=== PATIENT | male | born 1990 | race Asian ===

== ENCOUNTER 2022-05-17 03:58 | Emergency (ER) | payer BC ==
[~2022-05-17] VITALS: Ht 165.1 cm; Wt 63.5 kg
[2022-05-17 04:04] VITALS: BP 126/77
--- NOTE | 2022-05-17 04:11 | NUR ---
TO BED 7 FROM TRIAGE
--- NOTE | 2022-05-17 04:12 | NUR ---
NOTED BLOOD IN STOOL 1 HOUR AGO, BLOOD WAS BRIGHT RED AND PT HAS H/O HEMORRHOIDS AND CONSTIPATION PMH : DENIES
--- NOTE | 2022-05-17 04:18 | NUR ---
Dr. Dennis examining patient.
--- NOTE | 2022-05-17 04:45 | NUR ---
LABS DRAWN AND SENT TO LAB
[2022-05-17 04:55] LABS: BASOPHILS % (AUTO) 0.6 % (0.0-2.0); EOSINOPHILS # (AUTO) 0.2 K/uL (0-0.4); EOSINOPHILS % (AUTO) 4.3 % (0.0-4.0); HEMATOCRIT 43.4 % (36-52); HEMOGLOBIN 14.5 g/dL (12.0-18.0); LYMPHOCYTES % (AUTO) 36.5 % (20.5-51.1); MEAN CORPUSCULAR HEMOGLOBIN 28 pg (27-31); MEAN CORPUSCULAR HGB CONC 33 g/dL (33-37); MONOCYTES # (AUTO) 0.5 K/uL (0.8-1.0); MONOCYTES % (AUTO) 9.1 % (1.7-9.3); NEUTROPHILS # (AUTO) 2.7 K/uL (1.8-7.7); NEUTROPHILS % (AUTO) 49.5 % (42.2-75.2); PLATELET COUNT (AUTO) 197 K/uL (140-450); RED BLOOD CELL COUNT(AUTO) 5.17 MIL/uL (4.20-6.10); RED CELL DISTRIBUTION WIDTH 13.2 % (11.6-13.7); WHITE BLOOD COUNT (AUTO) 5.5 K/uL (4.8-10.8)
--- NOTE | 2022-05-17 04:58 | NUR ---
pt to CT via w/c
--- NOTE | 2022-05-17 04:58 | NUR ---
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
[2022-05-17] MEDS ORDERED: KETOROLAC 30 MG/ML VIAL IVP ONE (05:00)
[2022-05-17 05:10] LABS: ALBUMIN 4.5 g/dL (3.4-5.0); CARBON DIOXIDE 28.9 mmol/L (21-32); CREATININE 1.2 mg/dL (0.6-1.3); POTASSIUM 3.9 mmol/L (3.5-5.1); TOTAL BILIRUBIN 0.4 mg/dL (0.0-1.0)
[2022-05-17] MEDS ORDERED: ACET-10509 PO (05:33)
[2022-05-17] MEDS ORDERED: MIRABULK PO (05:33)
[2022-05-17] MEDS ORDERED: DOCU-299 PO (05:33)
[2022-05-17 05:50] VITALS: BP 126/77
--- NOTE | 2022-05-17 05:50 | NUR ---
Patient discharged with v/s stable. Written and verbal after care instructions given and explained. Patient verbalized understanding. Ambulatory with steady gait. All questions addressed prior to discharge. Advised to follow up with PMD.
== END 2022-05-17 05:50 | disposition home or self-care (01) ==
LOC: MED 03:58
DX: K92.1 Melena (principal); K59.00 Constipation, unspecified; R03.0 Elevated blood-pressure reading, without diagnosis of hypertension
CPT/HCPCS: 36415; 74176; 80053; 85025; 96374; 99285; J1885